=== PATIENT | male | born 1980 | race Caucasian/White ===

== ENCOUNTER → 2018-06-25 14:23 | Emergency (ER) | payer OTHER ==
[~2018-06-25 14:23] MED LIST: Famotidine TAB* 20 MG PO ONE; Iohexol 300* (CONTRAST) 10 ML SDV IV ONE; Ketorolac INJ* 30 MG/ML 1 ML VIAL IV PUSH ONE; NS 0.9% 1000 ML** 1,000 ML IV ONE; NS 0.9% 1000 ML** 2,000 ML IV ONE; Ondansetron INJ* 2 MG/ML VIAL IV ONE; Sucralfate TAB* 1 GM PO ONE
--- NOTE | 2018-06-25 14:34 | ED ---
HPI Chest Pain - HPI Summary HPI Summary: A 37 y/o M presents to ED with c/o L-anterior CP onset today. The pain is rated a 6/7 out of 10. It radiates to his back. Associated sx: LUE hand and fingers tingling, diaphoresis, SOB with exertion (walking). Aggravating factors: deep breaths. Patient reports have vomiting and decreased oral intake starting four days ago. He saw his PCP three days ago and began medications last night, dx: swollen colon. He ate an apple this morning, took his medications, and proceeded to vomit severely. He denies PMHx and surgeries. Non-smoker. - History of Current Complaint Chief Complaint: EDChestPainROMI Time Seen by Provider: 06/25/18 14:31 Hx Obtained From: Patient, Medical Records Onset/Duration: Atraumatic, Still Present Timing: Constant Initial Severity: Moderate Current Severity: Moderate Pain Intensity: 6 Pain Scale Used: 0-10 Numeric Chest Pain Location: Left Anterior Chest Pain Radiates: Yes Chest Pain Radiates To:: Back Aggravating Factor(s): Deep Breaths Associated Signs and Symptoms: Positive: Tingling - L hand/fingers, Shortness of Breath, Diaphoresis, Back Pain, Vomiting, Other: - pos: decreased oral intake - Allergy/Home Medications Allergies/Adverse Reactions: Allergies Allergy/AdvReac Type Severity Reaction Status Date / Time No Known Allergies Allergy Verified 06/25/18 14:45 Home Medications: Home Medications Ciprofloxacin HCl 500 mg PO BID 06/25/18 [History Confirmed 06/25/18] metroNIDAZOLE [Metronidazole] 500 mg PO TID 06/25/18 [History Confirmed 06/25/18 ] PMH/Surg Hx/FS Hx/Imm Hx Previously Healthy: Yes Endocrine/Hematology History: Denies: Hx Anticoagulant Therapy, Hx Diabetes, Hx Thyroid Disease Cardiovascular History: Denies: Hx Hypertension, Hx Pacemaker/ICD Respiratory History: Denies: Hx Asthma, Hx Chronic Obstructive Pulmonary Disease (COPD) GI History: Denies: Hx Ulcer History: Denies: Hx Renal Disease Neurological History: Denies: Hx Dementia, Hx Seizures Psychiatric History: Denies: Hx Substance Abuse Infectious Disease History: No Infectious Disease History: Denies: Hx Hepatitis, Hx Human Immunodeficiency Virus (HIV), Traveled Outside the [place] in Last 30 Days - Family History Known Family History: Positive: Hypertension, Diabetes - Social History Occupation: Employed Full-time Lives: With Family Alcohol Use: Occasionally Hx Substance Use: No Substance Use Type: Reports: None Hx Tobacco Use: No Smoking Status (MU): Never Smoked Tobacco Review of Systems Positive: Skin Diaphoresis Positive: Chest Pain Positive: Shortness Of Breath Positive: Vomiting, Other - pos: decreased oral intake Musculoskeletal: Other - pos: back pain Neurological: Other - pos: L hand/fingers tingling All Other Systems Reviewed And Are Negative: Yes Physical Exam - Summary Physical Exam Summary: VITAL SIGNS: Reviewed. GENERAL: Patient is a well-developed and nourished MALE who is lying comfortable in the stretcher. Patient is not in any acute respiratory distress. HEAD AND FACE: No signs of trauma. No ecchymosis, hematomas or skull depressions. No sinus tenderness. EYES: PERRLA, EOMI x 2, No injected conjunctiva, no nystagmus. EARS: Hearing grossly intact. Ear canals and tympanic membranes are within normal limits. MOUTH: Oropharynx within normal limits. NECK: Supple, trachea is midline, no adenopathy, no JVD, no carotid bruit, no c- spine tenderness, neck with full ROM. CHEST: Symmetric, no tenderness at palpation LUNGS: Clear to auscultation bilaterally. No wheezing or crackles. CVS: Regular rate and rhythm, S1 and S2 present, no murmurs or gallops appreciated. ABDOMEN: Soft, non-tender. No signs of distention. No rebound, no guarding, and no masses palpated. Bowel sounds are normal. EXTREMITIES: FROM in all major joints, no edema, no cyanosis or clubbing. NEURO: Alert and oriented x 3. No acute neurological deficits. Speech is normal and follows commands. SKIN: Dry and warm : Circumcised penis, both testicles are descended. No masses are appreciated. Positive cremasteric reflex. No testicular tenderness. Triage Information Reviewed: Yes Vital Signs On Initial Exam: Initial Vitals Temp Pulse Resp BP Pulse Ox 98.6 F 89 20 137/86 96 06/25/18 14:27 06/25/18 14:27 06/25/18 14:27 06/25/18 14:27 06/25/18 14:27 Vital Signs Reviewed: Yes Diagnostics - Vital Signs Vital Signs Temp Pulse Resp BP Pulse Ox 06/25/18 14:27 98.6 F 89 20 137/86 96 - Laboratory Result Diagrams: 06/25/18 15:01 06/25/18 15:01 Lab Statement: Any lab studies that have been ordered have been reviewed, and results considered in the medical decision making process. - Radiology CXR Radiology Interpretation Completed By: Radiologist Summary of Radiographic Findings: IMPRESSION: HYPERINFLATION WHICH CAN BE SEEN WITH COPD OR REACTIVE AIRWAY DISEASE. NO ACTIVE CARDIOPULMONARY DISEASE. ED provider has reviewed this report. - CT Chest CT Summary of CT Findings: Pending official report. - EKG 1435 Cardiac Rate: NL - 86 bpm EKG Rhythm: Sinus Rhythm Summary of EKG Findings: No ST elevation. Poor quality EKG. Re-Evaluation - Re-Evaluation 1 Re-Evaluation Time: 15:46 Change: Unchanged Comment: exam performed, see PE. Chest Pain Course/Dx - Course Assessment/Plan: This patient is a 37-year-old male who presents to the emergency department with a chief complaint of sharp chest pain. The patient reports that he has been having nausea vomiting for a couple days and now he has developed this chest pain. Test results without any significant abnormality except for creatinine 1.28, glucose 134, troponin 0.00. Urinalysis is negative UTI. Chest x-ray impression: hyperinflation which can be seen with COPD or reactive airway disease. No active cardiopulmonary disease. In the ED course the patient was given IV fluids, Toradol for the pain. After these medications were given the patients symptoms significantly improved. Because of the continued nausea vomiting and decided to do a chest CT to make sure that his esophagus is intact. Chest CT impression: minimal right basilar atelectasis , otherwise no acute pathology. I discussed all the findings and test results with the patient. Patient was instructed to return to the emergency room immediately if any of the symptoms return worsens. Plan of care was discussed with the patient and understands and agrees. All questions were answered at patient satisfaction. There were no further complaints or concerns. Lung exam before discharge: CTA B/L. Good air exchange. No wheezing or crackles heard. CVS : S1 and S2 present. No murmurs appreciated. Patient is alert and oriented x 3. Patient is hemodynamically stable. Patient will be discharged home with follow up PCP in the next 2-3 days - Diagnoses Provider Diagnoses: GERD (gastroesophageal reflux disease), Gastritis, Colitis Discharge - Sign-Out/Discharge Documenting (check all that apply): Patient Departure - DC Patient Received Moderate/Deep Sedation with Procedure: No - Discharge Plan Condition: Improved Disposition: HOME Prescriptions: Famotidine TAB* [Pepcid 20 MG TAB*] 20 mg PO BID #20 tab Metoclopramide TAB* [Reglan TAB*] 10 mg PO Q8H PRN #10 tab PRN Reason: Nausea Pantoprazole TAB * [Protonix TAB*] 40 mg PO DAILY #30 tab Sucralfate TAB* [Carafate*] 1 gm PO QID #40 tab Patient Education Materials: Metoclopramide (By mouth), Chest Pain (ED), Acute Nausea and Vomiting (ED) Forms: *Work Release Referrals: Luisito Matute MD [Primary Care Provider] - Additional Instructions: Call first thing in the morning to schedule follow-up with your primary care physician. [place] diet. Avoid ibuprofen, Aleve or anti-inflammatory medications. Avoid alcohol. Continue antibiotics as prescribed. You may need follow-up with GI doctor as discussed for possible endoscopy or colonoscopy if the symptoms persist. - Billing Disposition and Condition Condition: IMPROVED Disposition: Home - Attestation Statements Document Initiated by Darioibmarily: Yes Documenting Scribe: Melanie Galicia Provider For Whom Adan is Documenting (Include Credential): Dr. Shoaib Stewart MD Scribe Attestation: Melanie Mi scribed for Dr. Shoaib Stewart MD on 06/26/18 at 0721. Scribe Documentation Reviewed: Yes Provider Attestation: The documentation as recorded by the Melanie mederos accurately reflects the service I personally performed and the decisions made by me, Dr. Shoaib Stewart MD Status of Scribmarily Document: Viewed
--- OUTSIDE RECORDS SUMMARY | 2018-06-25 15:02 | XMS REPORT | Continuity of Care Document ---
:1980 External Reference #:[id number] Author Name Prashant Dominguez MD Address [address] [place] [address] Care Team Providers Name Role Phone Prashant Dominguez MD Care Team Information Boom Supervisor Unavailable Payers Date Identification Numbers Payment Provider Subscriber Effective: 2014 Policy Number: [id number] Molinaalthea Gonzalez PayID: [id number] [address] [place] [address] Effective: 2012 Policy Number: [id number] [employer] Blank Gonzalez Group Number: [id number] 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 Working Tobacco Use Start: Unknown Never Smoked Cigarettes ETOH Use Occasionally consumes alcohol Recreational Drug Use Denies Drug Use Tobacco Use Start: Unknown Patient has never smoked Enjoy Exercising Enjoys exercising Exercise Type/Frequency Lifts weights 5 times a week Allergies, Adverse Reactions, Alerts Description No Known Drug Allergies Medications Active Medications SIG Qnty Indications Ordering Provider Date Zofran 1 tab by mouth 14tabs A09 Prashant Dominguez, 06/22/2018 8mg Tablets three times a MD day as needed Creatine Two scoops with 454gm Melody Kurtz 05/18/2012 Powder 8 oz of water Shruthi Ramirez Zyrtec Allergy 1 by mouth every Unknown 10mg day Tablets History Medications Methylphenidate HCL 1-2 tab by 60tabs F90.0 Prashant Dominguez, 12/14/2014 - 5mg mouth daily MD 06/22/2018 Tablets Methylphenidate HCL take 1-2tabs by 60tabs F90.0 Prashant Dominguez, 2014 - 5mg mouth daily for MD 12/14/2014 Tablets ADHD symptoms Immunizations CPT Code Status Date Vaccine Lot # [id number] Given 05/18/2012 Tdap (Adacel) [id number] Vital Signs Date Vital Result Comment 06/22/2018 11:49am Weight 181.00 lb Weight 82.102 kg BP Systolic 122 mmHg BP Diastolic 82 mmHg Heart Rate 88 /min Body Temperature 98.2 F Respiratory Rate 17 /min Height 67 inches 5'7" BMI (Body Mass Index) 28.3 kg/m2 O2 % BldC Oximetry 97 % 12/26/2014 4:18pm Weight 176.00 lb Weight 79.834 kg BP Systolic 116 mmHg BP Diastolic 64 mmHg Heart Rate 52 /min 12/12/2014 4:34pm Weight 177.00 lb Weight 80.287 kg BP Systolic 138 mmHg BP Diastolic 66 mmHg Heart Rate 68 /min 11/19/2012 10:28am Weight 177.00 lb Weight 80.287 kg BP Systolic 138 mmHg BP Diastolic 74 mmHg Heart Rate 76 /min Body Temperature 98.1 F 05/18/2012 8:25am Weight 172.00 lb Weight 78.019 kg BP Systolic 104 mmHg BP Diastolic 62 mmHg Heart Rate 60 /min Height 67.5 inches 5'7.50" BMI (Body Mass Index) 26.5 kg/m2 Waist Circumference 34.75 Results Test Date Facility Test Result H/L Range Note Lipid Profile 06/22/2018 [facility] Triglycerides 240 mg/dL 1 (Trig/Chol/HDL) [phone] Cholesterol 269 mg/dL 2 HDL Cholesterol 61.1 mg/dL 3 LDL Cholesterol 160 mg/dL 4 Drug Abuse 20 12/12/2014 [facility] Urine Amphetamine Negative ng/mL N 5 Urine [phone] Urine Barbiturates Negative ng/mL N 6 Urine Benzodiazepines Negative ng/mL N 7 Urine Cocaine Negative ng/mL N 8 Urine Methadone Negative ng/mL N 9 Urine Opiates Negative ng/mL N 10 Urine Phencyclidine Negative ng/mL N Cutoff: 25 Urine Tetrahydrocannabinol Negative ng/mL N Cutoff: 20 11 Urine Oxycodone Negative ng/mL N 12 CBC No Diff 05/15/2012 [facility] White Blood 6.2 10^ 3/uL 4.8-10.8 [phone] Count Red Blood Count 5.12 10^6/uL 4.0-5.4 Hemoglobin 14.8 g/dL 14.0-18.0 Hematocrit 44 % 42-52 Mean Corpuscular Volume 87 fL 80-94 Mean Corpuscular Hemoglobin 29 pg 27-31 Mean Corpuscular HGB Conc 33 g/dL 31-36 Red Cell Distribution Width 14 % 10.5-15 Platelet Count 203 10^3/uL 150-450 Mean Platelet Volume 9 um3 7.4-10.4 Liver Function 05/15/2012 [facility] Total Protein 7.1 g/dL 6.2-8.1 Panel [phone] Albumin 4.4 g/dL 3.6-5.4 Globulin 2.7 g/dL 2-4 Albumin/Globulin Ratio 1.6 1-3 Total Bilirubin 0.6 mg/dL 0.4-1.5 Direct Bilirubin 0.1 mg/dL 0.1-0.5 Indirect Bilirubin 0.5 mg/dL 0.3-1.0 Alkaline Phosphatase 54 U/L 30-110 Alt 36 U/L 14-54 Ast 42 U/L 12-42 Lipid Profile 05/15/2012 [facility] Triglycerides 90 mg/dL 40-200 (Trig/Chol/HDL) [phone] Cholesterol 179 mg/dL Less than 200 HDL Cholesterol 54 mg/dL 40-60 13 Cholesterol/HDL Ratio 3.3 Average 1-4.44 LDL Cholesterol 107.0 mg/dL High Less Than 100 14 Laboratory test 05/15/2012 [facility] Hemoglobin A1c 5.6 % Less than 15 finding [phone] 6.0 Basic Metabolic 05/15/2012 [facility] Sodium 139 133-145 Panel [phone] mmol/L Potassium 4.0 mmol/L 3.5-5.0 Chloride 102 mmol/L 101-111 Co2 Carbon Dioxide 29.0 mmol/L 22-32 Anion Gap 8.0 mmol/L 2-11 Glucose 70 mg/dL 70-100 Blood Urea Nitrogen 19 mg/dL 6-24 Creatinine 1.30 mg/dL 0.50-1.40 BUN/Creatinine Ratio 14.6 8-20 Calcium 9.6 mg/dL 8.1-9.9 Egfr Non- 64.8 >60 Egfr 83.4 >60 16 1 Desirable: <150 Borderline High: 150-199 High: 200-499 Very High: >500 2 Desirable: <200 Borderline High: 200-239 High: >239 3 Low: <40 Desirable: 40-60 High: >60 4 Desirable: <100 Near Optimal: 100-129 Borderline High: 130-159 High: 160-189 Very High: >189 5 REFERENCE VALUE Cutoff: 500 6 REFERENCE VALUE Cutoff: 200 7 REFERENCE VALUE Cutoff: 200 8 REFERENCE VALUE Cutoff: 150 9 REFERENCE VALUE Cutoff: 150 10 REFERENCE VALUE Cutoff: 300 11 ADDITIONAL INFORMATION This report is intended for use in clinical monitoring or management of patients. It is not intended for use in employment-related testing. 12 REFERENCE VALUE Cutoff: 100 ADDITIONAL INFORMATION This report is intended for use in clinical monitoring or management of patients. It is not intended for use in employment-related testing. Test Performed by: [place] [address] Solution Design And Analysis Manager: David Vale II, M.D., Ph.D. 13 HDL Interpretation: Undesirable: High Risk: Less than 40 MG/DL Desirable: Low Risk: Greater than 60 MG/DL 14 LDL Interpretation: Low Risk Optimal Level: LDL Less than 100 MG/DL Near or Above Optimal: LDL 100-129 MG/DL Borderline High Risk: LDL 130-159 MG/DL High Risk: LDL 160-189 MG/DL Very High Risk: LDL Greater than 189 MG/DL 15 Therapeutic target for the treatment of diabetes Mellitus patients is <7% HBA1C, and in selective patients <6.0%.Please refer to [place] [employer] Association Diabetic care guidelines for further information. 16 Because ethnic data is not always readily available, this report includes an eGFR for both -Americans and non- Americans. The National Kidney Disease Education Program (NKDEP) does not endorse the use of the MDRD equation for patients that are not between the ages of 18 and 70, are , have extremes of body size, muscle mass, or nutritional status, or are non- or non-. 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 780.79 Malaise And Fatigue Other Office Visit 05/18/2012 8:30a Main Office Melody Kurtz V70.0 Examination Shruthi Ramirez General Medical Routine AT [facility] V06.1 Dddxjvdkpm-Lrbtejx-Uavvtvox Combined (DTaP) Plan of Treatment 06/22/2018 - Prashant Dominguez MDA09 Infectious gastroenteritis and colitis, unspecifiedNew Medication:Zofran 8 mg - 1 tab by mouth three times a day as neededComments:H&P consistent with standard acute diarrhea. No unusual exposures or alarm symptoms. Plan is forsymptomatic treatment and followup if diarrhea becomes severe or chronic.Recommendations:Salt/sugar. Gatorade, pedialyte, chicken broth.E78.5 Hyperlipidemia, unspecified
--- OUTSIDE RECORDS SUMMARY | 2018-06-25 15:02 | XMS REPORT | Continuity of Care Document ---
:1980 External Reference #:[id number] Author Name Prashant Dominguez MD Address [address] [place] [address] Care Team Providers Name Role Phone Prashant Dominguez MD Care Team Information Port Engineer Unavailable Payers Date Identification Numbers Payment Provider Subscriber Effective: 2014 Policy Number: [id number] Seferino Gonzalez PayID: [id number] [address] [place] [address] Effective: 2012 Policy Number: [id number] [employer] Blank Gonzalez Group Number: 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 Working Tobacco Use Start: Unknown Never Smoked Cigarettes ETOH Use Occasionally consumes alcohol Recreational Drug Use Denies Drug Use Tobacco Use Start: Unknown Patient has never smoked Enjoy Exercising Enjoys exercising Exercise Type/Frequency Lifts weights 5 times a week Allergies, Adverse Reactions, Alerts Description No Known Drug Allergies Medications Active Medications SIG Qnty Indications Ordering Date Provider Metronidazole take 1 tablet by 30tabs K57.32 Prashant 06/24/2018 500mg mouth 3 times per day MD Angelica Tablets for 10 days for diverticulitis Ciprofloxacin HCL 1 tab by mouth twice 20tabs K57.32 Prashant 06/24/2018 a day MD Angelica 500mg Tablets Zofran 1 tab by mouth three 14tabs A09 Prashant 06/22/2018 8mg Tablets times a day as needed MD Angelica Creatine Two scoops with 8 oz 454gm Melody AlfaroNoam 05/18/2012 Powder of Shruthi Bonillayrtena Allergy 1 by mouth every day Unknown 10mg Tablets History Medications Methylphenidate HCL 1-2 tab by 60tabs F90.0 Prashant Dominguez, 12/14/2014 - 5mg mouth daily 06/22/2018 Tablets Methylphenidate HCL take 1-2tabs by 60tabs F90.0 Prashant Dominguez, 2014 - 5mg mouth daily for 12/14/2014 Tablets ADHD symptoms Immunizations CPT Code Status Date Vaccine Lot # [id number] Given 05/18/2012 Tdap (Adacel) [id number] Vital Signs Date Vital Result Comment 06/24/2018 9:43am Weight 177.25 lb Weight 80.401 kg BP Systolic 116 mmHg BP Diastolic 68 mmHg Heart Rate 88 /min Body Temperature 97.9 F Respiratory Rate 18 /min O2 % BldC Oximetry 98 % 06/22/2018 11:49am Weight 181.00 lb Weight 82.102 [...] Date Facility Test Result H/L Range Note Urine DIP 06/24/2018 In House Lab Leukocytes neg Neg (607)- - Urine Nitrites neg Neg Urobilinogen 1 High Norm Total Protein Urine trace Neg Urine pH 5 5-6 Urine Blood neg Neg Specific Calvin 1.025 High 1.01-1.02 Urine Ketones ++ Neg Urine Bilirubin + Neg Urine Glucose norm Norm Lipid Profile 06/22/2018 [facility] Triglycerides 240 mg/dL 1 (Trig/Chol/HDL) [phone] Cholesterol 269 mg/dL 2 HDL Cholesterol 61.1 mg/dL 3 LDL Cholesterol 160 mg/dL 4 Drug Abuse 20 12/12/2014 [facility] Urine Amphetamine Negative ng/mL N 5 Urine [phone] Urine Barbiturates Negative ng/mL N 6 Urine Benzodiazepines Negative ng/mL N 7 Urine Cocaine Negative ng/mL N 8 Urine Methadone Negative ng/mL N 9 Urine Opiates Negative ng/mL N 10 Urine Phencyclidine Negative ng/mL N Cutoff: 25 Urine Tetrahydrocannabinol Negative ng/mL N Cutoff: 20 11 Urine Oxycodone Negative ng/mL N 12 CBC No Diff 05/15/2012 [facility] White Blood 6.2 10^ 3/uL 4.8-10.8 [phone] Count Red Blood Count 5.12 10^6/uL 4.0-5.4 Hemoglobin 14.8 g/dL 14.0-18.0 Hematocrit 44 % 42-52 Mean Corpuscular Volume 87 fL 80-94 Mean Corpuscular Hemoglobin 29 pg 27-31 Mean Corpuscular HGB Conc 33 g/dL 31-36 Red Cell Distribution Width 14 % 10.5-15 Platelet Count 203 10^3/uL 150-450 Mean Platelet Volume 9 um3 7.4-10.4 Liver Function 05/15/2012 [facility] Total Protein 7.1 g/dL 6.2-8.1 Panel [phone] Albumin 4.4 g/dL 3.6-5.4 Globulin 2.7 g/dL 2-4 Albumin/Globulin Ratio 1.6 1-3 Total Bilirubin 0.6 mg/dL 0.4-1.5 Direct Bilirubin 0.1 mg/dL 0.1-0.5 Indirect Bilirubin 0.5 mg/dL 0.3-1.0 Alkaline Phosphatase 54 U/L 30-110 Alt 36 U/L 14-54 Ast 42 U/L 12-42 Lipid Profile 05/15/2012 [facility] Triglycerides 90 mg/dL 40-200 (Trig/Chol/HDL) [phone] Cholesterol 179 mg/dL Less than 200 HDL Cholesterol 54 mg/dL 40-60 13 Cholesterol/HDL Ratio 3.3 Average 1-4.44 LDL Cholesterol 107.0 mg/dL High Less Than 100 14 Laboratory test 05/15/2012 [facility] Hemoglobin A1c 5.6 % Less than 15 finding [phone] 6.0 Basic Metabolic 05/15/2012 [facility] Sodium 139 133-145 Panel [phone] mmol/L Potassium 4.0 mmol/L 3.5-5.0 Chloride 102 [...] use in employment-related testing. Test Performed by: [address] [address] Yarding And Folding Machine Operator: David Vale II, M.D., Ph.D. 13 HDL [...] and in selective patients <6.0%.Please refer to [place] [employer] Association Diabetic care guidelines for further [...] Date Location Provider Dx Diagnosis Office Visit 06/22/2018 Main Office Prashant Dominguez, A09 Infectious 11:45a gastroenteritis and colitis, unspecified E78.5 Hyperlipidemia, unspecified Office Visit 12/26/2014 4:30p Main Office Prashant Dominguez F90.0 Abby madera MD hyperactivity disorder, predom inattentive type Office Visit 12/12/2014 4:30p Main Office Prashant Dominguez F90.0 Abby madera MD hyperactivity disorder, predom inattentive type D17.23 Benign lipomatous neoplasm of skin, subcu of right leg Office Visit 11/19/2012 10:30a Main Office Dawood Patel M.D. 780.79 Malaise And Fatigue Other Office Visit 05/18/2012 8:30a Main Office Melody Kurtz V70.0 Examination Shruthi Ramirez General Medical Routine AT [facility] V06.1 Vwyyfhgsxa-Eqpdcee-Keotpxwx Combined (DTaP) Plan of Treatment Future Appointment(s):06/26/2018 11:00 am - Prashant Dominguez MD at Main [facility]9506/24/2018 - Prashant Dominguez MDK57.32 Diverticulitis of large intestine without perforation or absNew Medication:Metronidazole 500 mg - take 1 tablet by mouth 3 times per day for 10 days for diverticulitisCiprofloxacin HCL 500 mg - 1 tab by mouth twice a dayNew Labs:CBC Auto Diff, Ordered: 06/24/18C Reactive Protein, Ordered: 06/24/18Comp Metabolic Panel, Ordered: 06/24/18Lactic Acid, Ordered: 06/24/18New Xrays:CT Abdomen & Pelvis W/ Contrast, Ordered: Follow up:/u fridayRecommendations:Drink pedialyte as tolerated Take a caffeine pill or two per day
[2018-06-25 15:09] LABS: ABS Lymphocytes 1.4 10^3/ul (1.0-4.8); ABS Monocytes 0.5 10^3/ul (0-0.8); ABS Neutrophils 5.8 10^3/ul (1.5-7.7); Eosinophil % 0.1 %; Hematocrit 44 % (42-52); Hemoglobin 15.1 g/dL (14.0-18.0); Lymphocyte % 18.7 %; Mean Corpuscular HGB Conc 35 g/dL (31-36); Mean Corpuscular Hemoglobin 29 pg (27-31); Mean Corpuscular Volume 83 fL (80-94); Nucleated Red Blood Cells % 0.1; Platelet Count 226 10^3/uL (150-450); Red Blood Count 5.29 10^6 /uL (4.18-5.48); Red Cell Distribution Width 13 % (10.5-15); White Blood Count 7.7 10^3/uL (3.5-10.8)
[2018-06-25 15:32] LABS: Albumin 4.8 g/dL (3.2-5.2); Albumin/Globulin Ratio 1.6 (1-3); BUN/Creatinine Ratio 9.4 (8-20); Calcium 9.9 mg/dL (8.6-10.3); EGFR African American 76.9 (>60); EGFR Non-African American 63.6 (>60); Magnesium 2.1 mg/dL (1.9-2.7); Potassium 3.7 mmol/L (3.5-5.0); Total Bilirubin 0.5 mg/dL (0.2-1.0); Total Protein 7.8 g/dL (6.4-8.9)
[2018-06-25 15:39] LABS: CKMB ng/mL 0.9 ng/mL (0.6-6.3)
[2018-06-25 16:05] LABS: TSH (Thyroid Stimulating Horm) 1.73 mcIU/mL (0.34-5.60)
[2018-06-25 17:06] LABS: Urine Appearance Clear; Urine Bacteria Absent (Absent); Urine Bilirubin Negative (Negative); Urine Blood Negative (Negative); Urine Color Yellow; Urine Glucose Negative (Negative); Urine Ketones Negative (Negative); Urine Nitrite Negative (Negative); Urine Protein Negative (Negative); Urine Red Blood Cell Trace(0-2/hpf) (Absent); Urine Urobilinogen Negative (Negative); Urine White Blood Cell Trace(0-5/hpf) (Absent)
--- NOTE | 2018-06-25 20:15 | ED ---
Progress - Progress Note Progress Note: Patient was signed out from Dr. Shoaib Stewart to Dr. Anjel Finley during a shift change on 06/25/2018 at 19:00. Patient is pending a chest CT. Course/Dx - Course Course Of Treatment: Patient feeling better with Pepcid. His chest pain is subxiphoid and likely associated with his recent antibiotics. He felt better with Pepcid was discharged on GI meds. He'll continue his antibiotics for colitis. He denies history of Crohn's, ulcerative colitis. - Diagnoses Provider Diagnoses: GERD (gastroesophageal reflux disease), Gastritis, Colitis Discharge - Sign-Out/Discharge Documenting (check all that apply): Patient Departure - D/C home, Receiving Sign -Out Receiving patient FROM: Shoaib Stewart - Pending Chest CT Patient Received Moderate/Deep Sedation with Procedure: No - Discharge Plan Condition: Improved Disposition: HOME Prescriptions: Famotidine TAB* [Pepcid 20 MG TAB*] 20 mg PO BID #20 tab Metoclopramide TAB* [Reglan TAB*] 10 mg PO Q8H PRN #10 tab PRN Reason: Nausea Pantoprazole TAB * [Protonix TAB*] 40 mg PO DAILY #30 tab Sucralfate TAB* [Carafate*] 1 gm PO QID #40 tab Patient Education Materials: Metoclopramide (By mouth), Chest Pain (ED), Acute Nausea and Vomiting (ED) Forms: *Work Release Referrals: Luisito Matute MD [Primary Care Provider] - Additional Instructions: Call first thing in the morning to schedule follow-up with your primary care physician. [place] diet. Avoid ibuprofen, Aleve or anti-inflammatory medications. Avoid alcohol. Continue antibiotics as prescribed. You may need follow-up with GI doctor as discussed for possible endoscopy or colonoscopy if the symptoms persist. - Billing Disposition and Condition Condition: IMPROVED Disposition: Home - Attestation Statements Document Initiated by Adan: Yes Documenting Scribe: Neftali Houston Provider For Whom Adan is Documenting (Include Credential): Anjel Finley MD Scribe Attestation: Neftali Mi, scribed for Anjel Finley MD on 06/25/18 at 2051. Scribe Documentation Reviewed: Yes Provider Attestation: The documentation as recorded by the Neftali mederos accurately reflects the service I personally performed and the decisions made by me, Anjel Finley MD Status of Adan Document: Viewed Diagnostics - Vital Signs Vital Signs Temp Pulse Resp BP Pulse Ox 06/25/18 19:35 66 14 127/78 97 06/25/18 19:05 73 18 132/66 98 06/25/18 19:00 67 12 97 06/25/18 18:35 66 18 134/75 98 06/25/18 18:05 60 17 126/72 99 06/25/18 18:00 65 26 98 06/25/18 17:35 68 21 127/71 98 06/25/18 17:05 82 19 107/79 96 06/25/18 17:00 64 22 96 06/25/18 16:35 68 23 140/78 98 06/25/18 16:05 73 17 124/90 96 06/25/18 16:00 73 17 98 06/25/18 15:57 98 06/25/18 15:35 95 17 130/91 97 06/25/18 15:05 78 20 124/79 97 06/25/18 15:00 19 06/25/18 14:35 80 12 141/85 98 06/25/18 14:27 98.6 F 89 20 137/86 96 - Laboratory Lab Results: Lab Results 06/25/18 06/25/18 06/25/18 Range/Units 15:01 15:01 15:01 WBC 7.7 (3.5-10.8) 10^3/uL RBC 5.29 (4.18-5.48) 10^6 /uL Hgb 15.1 (14.0-18.0) g/dL Hct 44 (42-52) % MCV 83 (80-94) fL MCH 29 (27-31) pg MCHC 35 (31-36) g/dL RDW 13 (10.5-15) % Plt Count 226 (150-450) 10^3/uL MPV 7.0 L (7.4-10.4) fL Neut % (Auto) 74.4 % Lymph % (Auto) 18.7 % [place] % (Auto) 6.4 % Eos % (Auto) 0.1 % Baso % (Auto) 0.4 % Absolute Neuts (auto) 5.8 (1.5-7.7) 10^3/ul Absolute Lymphs (auto) 1.4 (1.0-4.8) 10^3/ul Absolute Monos (auto) 0.5 (0-0.8) 10^3/ul Absolute Eos (auto) 0.0 (0-0.6) 10^3/ul Absolute Basos (auto) 0.0 (0-0.2) 10^3/ul Absolute Nucleated RBC 0.0 10^3/ul Nucleated RBC % 0.1 D-Dimer, Quantitative (Less Than 230) ng/mL Sodium 138 (135-145) mmol/L Potassium 3.7 (3.5-5.0) mmol/L Chloride 101 (101-111) mmol/L Carbon Dioxide 28 (22-32) mmol/L Anion Gap 9 (2-11) mmol/L BUN 12 (6-24) mg/dL Creatinine 1.28 H (0.67-1.17) mg/dL Est GFR ( Amer) 76.9 (>60) Est GFR (Non-Af Amer) 63.6 (>60) BUN/Creatinine Ratio 9.4 (8-20) Glucose 134 H (70-100) mg/dL Lactic Acid 1.3 (0.5-2.0) mmol/L Calcium 9.9 (8.6-10.3) mg/dL Magnesium 2.1 (1.9-2.7) mg/dL Total Bilirubin 0.50 (0.2-1.0) mg/dL AST 18 (13-39) U/L ALT 24 (7-52) U/L Alkaline Phosphatase 47 (34-104) U/L Total Creatine Kinase 145 (10-223) U/L CK-MB (CK-2) 0.9 (0.6-6.3) ng/mL Troponin I 0.00 (<0.04) ng/mL Total Protein 7.8 (6.4-8.9) g/dL Albumin 4.8 (3.2-5.2) g/dL Globulin 3.0 (2-4) g/dL Albumin/Globulin Ratio 1.6 (1-3) TSH 1.73 (0.34-5.60) mcIU/mL Urine Color Urine Appearance Urine pH (5-9) Ur Specific Avenue (1.010-1.030) Urine Protein (Negative) Urine Ketones (Negative) Urine Blood (Negative) Urine Nitrate (Negative) Urine Bilirubin (Negative) Urine Urobilinogen (Negative) Ur Leukocyte Esterase (Negative) Urine WBC (Auto) (Absent) Urine RBC (Auto) (Absent) Urine Bacteria (Absent) Urine Glucose (Negative) 06/25/18 06/25/18 06/25/18 Range/Units 16:48 17:57 18:00 WBC (3.5-10.8) 10^3/uL RBC (4.18-5.48) 10^6 /uL Hgb (14.0-18.0) g/dL Hct (42-52) % MCV (80-94) fL MCH (27-31) pg MCHC (31-36) g/dL RDW (10.5-15) % Plt Count (150-450) 10^3/uL MPV (7.4-10.4) fL Neut % (Auto) % Lymph % (Auto) % [place] % (Auto) % Eos % (Auto) % Baso % (Auto) % Absolute Neuts (auto) (1.5-7.7) 10^3/ul Absolute Lymphs (auto) (1.0-4.8) 10^3/ul Absolute Monos (auto) (0-0.8) 10^3/ul Absolute Eos (auto) (0-0.6) 10^3/ul Absolute Basos (auto) (0-0.2) 10^3/ul Absolute Nucleated RBC 10^3/ul Nucleated RBC % D-Dimer, Quantitative < 200 (Less Than 230) ng/mL Sodium (135-145) mmol/L Potassium (3.5-5.0) mmol/L Chloride (101-111) mmol/L Carbon Dioxide (22-32) mmol/L Anion Gap (2-11) mmol/L BUN (6-24) mg/dL Creatinine (0.67-1.17) mg/dL Est GFR ( Amer) (>60) Est GFR (Non-Af Amer) (>60) BUN/Creatinine Ratio (8-20) Glucose (70-100) mg/dL Lactic Acid (0.5-2.0) mmol/L Calcium (8.6-10.3) mg/dL Magnesium (1.9-2.7) mg/dL Total Bilirubin (0.2-1.0) mg/dL AST (13-39) U/L ALT (7-52) U/L Alkaline Phosphatase (34-104) U/L Total Creatine Kinase (10-223) U/L CK-MB (CK-2) (0.6-6.3) ng/mL Troponin I 0.01 (<0.04) ng/mL Total Protein (6.4-8.9) g/dL Albumin (3.2-5.2) g/dL Globulin (2-4) g/dL Albumin/Globulin Ratio (1-3) TSH (0.34-5.60) mcIU/mL Urine Color Yellow Urine Appearance Clear Urine pH 6.0 (5-9) Ur Specific Avenue 1.010 (1.010-1.030) Urine Protein Negative (Negative) Urine Ketones Negative (Negative) Urine Blood Negative (Negative) Urine Nitrate Negative (Negative) Urine Bilirubin Negative (Negative) Urine Urobilinogen Negative (Negative) Ur Leukocyte Esterase Negative (Negative) Urine WBC (Auto) Trace(0-5/hpf) (Absent) Urine RBC (Auto) Trace(0-2/hpf) (Absent) Urine Bacteria Absent (Absent) Urine Glucose Negative (Negative) Result Diagrams: 06/25/18 15:01 06/25/18 15:01 Lab Statement: Any lab studies that have been ordered have been reviewed, and results considered in the medical decision making process. - Radiology CXR Radiology Interpretation Completed By: Radiologist Summary of Radiographic Findings: IMPRESSION: HYPERINFLATION WHICH CAN BE SEEN WITH COPD OR REACTIVE AIRWAY DISEASE. NO ACTIVE CARDIOPULMONARY DISEASE. ED provider has reviewed this report. - CT Chest CT CT Interpretation Completed By: Radiologist Summary of CT Findings: 19:31. Minimal right basilar atelectasis, otherwise no acute chest pathology. Mild degenerative changes in mid thoracic spine. ED Physician has reviewed this imaging report. - EKG 1435 Cardiac Rate: NL - 86 bpm EKG Rhythm: Sinus Rhythm Summary of EKG Findings: No ST elevation. Poor quality EKG.
[2018-06-25 20:25] VITALS: BP 136/85
== END | disposition home or self-care (01) ==
LOC: ED 14:23
DX: K21.9 Gastro-esophageal reflux disease without esophagitis (principal); K29.70 Gastritis, unspecified, without bleeding; K52.9 Noninfective gastroenteritis and colitis, unspecified; J98.11 Atelectasis; Z79.899 Other long term (current) drug therapy
CPT/HCPCS: 36415; 71046; 71260; 80053; 81003; 82550; 82553; 83605; 83735; 84443; 84484; 85025; 85379; 87086; 93005; 96361; 96374; 96375; 99284; A9270-GY; J1885; J2405; Q9967